=== PATIENT | female | born 1945 | race Hispanic/Latino ===

== ENCOUNTER → 2023-02-18 09:50 | Outpatient (CLI) | payer MEDICARE, SELFPAY ==
[2023-02-18 20:39] LABS: Add Manual Diff / Slide Review NO; Basophils Absolute Auto 0 /uL (0-100); Basophils Percent Auto 0.5 % (0-2); Eosinophils Absolute Auto 0 /uL (0-450); Eosinophils Percent Auto 0.6 % (2-4); Hematocrit 41.1 % (36-46); Hemoglobin 13.9 g/dL (12.0-16.0); Lymphocytes Absolute Auto 1500 /uL (1100-4500); Lymphocytes Percent Auto 26.7 % (25-40); Mean Corpuscular HGB Conc 33.8 % (30-36); Mean Corpuscular Hemoglobin 29.3 PG (26-34); Mean Corpuscular Volume 86.6 fL (80-100); Monocytes Absolute Auto 500 /uL (0-900); Monocytes Percent Auto 8.9 % (3-14); Neutrophils Absolute Auto 3600 /uL (1500-7000); Neutrophils Percent Auto 63.3 % (50-75); Platelet Count 262 X10^3/uL (150-400); Red Blood Cell Count 4.74 X10^6/uL (4.0-5.2); Red Cell Distribution Width 13.5 % (11.6-14.8); White Blood Cell Count 5.6 X10^3/uL (4.5-11.0)
[2023-02-18 21:04] LABS: TSH w/ Reflex to FT4 0.55 uIU/mL (0.47-4.68)
[2023-02-18 22:21] LABS: Alanine Aminotransferase 18 IU/L (<35); Albumin 4.2 g/dL (3.5-5.0); Alkaline Phosphatase 76 U/L (38-126); Aspartate Aminotransferase 29 IU/L (14-36); BUN Creatinine Ratio 18.3 (6-22); Bilirubin Total 0.5 mg/dL (0.2-1.3); Blood Urea Nitrogen 20 mg/dL (7-17); Calcium 10.2 mg/dL (8.4-10.2); Carbon Dioxide 27 mmol/L (22-32); Chloride 105 mmol/L (98-107); Cholesterol 175 mg/dL (140-199); Estimated Glomerular Filt Rate 52 mL/min (>60); Globulin 4.3 g/dL (1.7-4.1); Glucose 99 mg/dL (80-110); HDL Cholesterol 60 mg/dL (40-60); HEMOLYSIS < 15 (0-50); LDL Cholesterol Calculated 89 mg/dL (<100); Sodium 140 mmol/L (137-145); Total Protein 8.5 g/dL (6.3-8.2); Triglycerides 131 mg/dL (35-150)
[2023-02-18 23:24] LABS: Folate 8.7 ng/mL (2.76-20.0); Vitamin B12 320 pg/mL (239-931)
== END ==
PROVIDERS: PCP Family Medicine; Visit Provider Family Medicine
DX: E03.9 Hypothyroidism, unspecified (principal); E78.2 Mixed hyperlipidemia; I10 Essential (primary) hypertension; N18.31 Chronic kidney disease, stage 3a; R10.9 Unspecified abdominal pain; R26.89 Other abnormalities of gait and mobility; R82.998 Other abnormal findings in urine
CPT/HCPCS: 80053; 80061; 82607; 82746; 84443; 85025; 87077; 87086; 87147

== ENCOUNTER → 2023-02-22 13:26 | Outpatient (CLI) | payer OTHER, SELFPAY ==
[2023-02-22 14:37] LABS: Vitamin D 25 Hydroxy (D3) 25.8 ng/mL (30.0-100.0)
== END ==
PROVIDERS: PCP Family Medicine; Visit Provider Family Medicine
DX: Z86.39 Personal history of other endocrine, nutritional and metabolic disease (principal)
CPT/HCPCS: 82306

== ENCOUNTER → 2023-04-16 16:35 | Outpatient (CLI) | payer MEDICARE, MEDICAID, SELFPAY ==
--- NOTE | 2023-04-16 16:40 | DI.MRI.S_ITS ---
PROCEDURE: MR HEAD/BRAIN WO CON INDICATIONS: imbalance TECHNIQUE: Non-contrast axial T1 spin echo, axial T2 fast spin echo, sagittal and axial FLAIR, coronal T2 fast spin echo, axial gradient echo, axial diffusion and ADC through the brain. COMPARISON: None. FINDINGS: Image quality: Excellent. CSF spaces: Ventricles appear symmetric in size and shape. Basal cisterns are patent. No extra-axial fluid collections. Brain: No intracranial bleeds or mass effects. There is cerebral volume loss for age. There are periventricular and deep white matter chronic small vessel ischemic changes. Brainstem appears normal. Diffusion-weighted images show no acute ischemic insults. Possible small infarct within the right frontal lobe. Normal intravascular flow voids are present. Skull and face: Calvarial bone marrow is normal in signal. Orbits are normal. Sinuses: Paranasal sinuses are clear. Trace left mastoid effusion. IMPRESSION: 1. No acute or subacute infarct. No acute intracranial abnormalities. 2. Age-related global volume loss and chronic microvascular ischemic changes. Dictated by: Mainor Dumont M.D. on 04/17/2023 at 9:01 Approved by: Mainor Dumont M.D. on 04/17/2023 at 9:03
--- NOTE | 2023-04-16 16:40 | DI.MRI.S_ITS ---
PROCEDURE: MR LUMBAR SPINE WO CON INDICATIONS: Low back pain, radicular symptoms history of breast cancer TECHNIQUE: Noncontrast sagittal T1 spin echo and T2 fast echo, sagittal STIR, and T2 fast spin echo through the lumbar spine. In cases with scoliosis, additional coronal T2 fast spin echo may be performed. COMPARISON: None. FINDINGS: Image quality: Excellent. Alignment and Curvature: There is normal bony alignment. Bone Marrow: Marrow is of normal overall signal. No acute vertebral body compression fractures. Spinal Cord: Conus medullaris terminates at the L1 level. Visualized cord demonstrates normal signal and size. Paraspinous Soft Tissues: No paravertebral masses. T12-L1: Disc desiccation. Facet arthropathy. No central canal or neural foraminal stenosis. L1-L2: Disc desiccation and minimal posterior disc bulge. Facet arthropathy. No central canal or neural foraminal stenosis. L2-L3: Disc desiccation and minimal posterior disc bulge. Facet arthropathy. No central canal or neural foraminal stenosis. L3-L4: Disc desiccation. Small posterior disc bulge. Facet arthropathy and thickening of the ligamentum flavum. Mild central canal. No neural foraminal stenosis. L4-L5: Disc desiccation and height loss. Posterior disc bulge. Facet arthropathy and thickening of ligamentum flavum. Moderate central canal stenosis. No neural foraminal stenosis. L5-S1: Disc desiccation height loss. Small posterior disc bulge. Facet arthropathy. Mild left neural foraminal stenosis. No right neural foraminal stenosis. No central canal stenosis. IMPRESSION: 1. Multilevel degenerative changes of the lumbar spine as described above. 2. Moderate central canal stenosis at L4-5, mild central canal stenosis at L3-L4. 3. Mild left neural foraminal stenosis at L5-S1. Otherwise, no significant neural foraminal stenosis. Dictated by: Mainor Dumont M.D. on 04/17/2023 at 9:03 Approved by: Mainor Dumont M.D. on 04/17/2023 at 9:06
== END ==
PROVIDERS: PCP Family Medicine; Referring Provider Family Medicine; Visit Provider Family Medicine
DX: M47.27 Other spondylosis with radiculopathy, lumbosacral region (principal); M47.26 Other spondylosis with radiculopathy, lumbar region; M48.061 Spinal stenosis, lumbar region without neurogenic claudication; M48.07 Spinal stenosis, lumbosacral region; R26.89 Other abnormalities of gait and mobility; Z85.3 Personal history of malignant neoplasm of breast
CPT/HCPCS: 70551; 72148